=== PATIENT | female | born 1960 | race African-American/Black ===

== ENCOUNTER 2025-05-26 09:50 | Outpatient (AMB) | payer MEDICARE, SELFPAY ==
--- NOTE | 2025-05-26 09:50 | MHC.PC.OV ---
Vital Signs 05/26/25 09:52 Height 5 ft 4.75 in Weight 163 lb 4 oz BMI 27.4 BP 124/86 Blood Pressure Location Rt brachial Position Sitting Respiration 16 Pulse 96 Pulse Source Pulse Oximeter Temp 96.8 F Temp Source Temporal Artery Scan Pulse Oximetry (%) 97 Oxygen Delivery Method Room Air Intake Visit Reasons: routine Help Desk Manager Required: No Accompanied by: Self / Same As Patient Allergies pravastatin Adverse Reaction (Intermediate, Verified 05/26/25 09:54) muscle aches Tobacco use date assessed: 05/26/25 Fall risk assessment: No Falls in past year Last assessed Fall Risk: 05/26/25 Dental Screening Dental Screen Date: 05/26/25 Did you have a dental visit in the last 12 months?: Yes Did you have a dental problem in the last 6 months where you did not have access to dental care?: No Was dental information given to patient?: Patient has dentist [facility] Medical History (Updated 05/25/25 @ 23:05 by Phyllis Frod MD) Rheumatoid arthritis CKD stage 3a, GFR 45-59 ml/min History of stroke Mixed hyperlipidemia Primary hypertension Surgical History (Updated 05/25/25 @ 23:05 by Phyllis Ford MD) H/O: hysterectomy History of colonoscopy (~07/31/24) Family History (Updated 05/25/25 @ 23:04 by Phyllis Ford MD) Sister Primary hypertension Other Diabetes mellitus Heart attack Mixed hyperlipidemia Ovarian cancer Social History Housing: [employer] Patient Tobacco Use Status: Never used Tobacco e-Cigarette/Vaping Use: Never Used service: No Current occupational status: retired Questionnaire PHQ-9 Over the last 2 weeks, how often have you been bothered by any of the following problems? 1. Little interest or pleasure in doing things: not at all 2. Feeling down, depressed, or hopeless: not at all 3. Trouble falling or staying asleep, or sleeping too much: several days 4. Feeling tired or having little energy: not at all 5. Poor appetite or overeating: not at all 6. Feeling bad about yourself - or that you are a failure or have let yourself or your family down: not at all 7. Trouble concentrating on things, such as reading the newspaper or watching television: not at all 8. Moving or speaking so slowly that other people could have noticed. Or the opposite - being so fidgety or restless that you have been moving around a lot more than usual: not at all 9. Thoughts that you would be better off or of hurting yourself in some way: not at all Total score: 1 Depression Screening Interpretation: Negative Depression Screening Done: Yes [id number] - PHQ-9 Billing: Yes Source: Developed by Drs. Chris Owen, Celina Farmer, Rodrick Guido and colleagues, with an educational nel from [employer]. AUDIT C Alcohol Use Questionnaire (AUDIT-C) 1. How often do you have a drink containing alcohol?: Never 3. How often do you have six or more drinks on one occasion?: Never Total Score: 0 Physical exam (Primary Care) Vital Signs: Last Vital Signs Temp 96.8 F 05/26/25 09:52 Pulse 96 05/26/25 09:52 Resp 16 05/26/25 09:52 BP 124/86 05/26/25 09:52 Pulse Ox 97 05/26/25 09:52 Oxygen Delivery Method Room Air 05/26/25 09:52 BMI result Body Mass Index 27.4 Tobacco/Smoking Status: Tobacco use Status Tobacco use date assessed 05/26/25 05/26/25 10:02 Patient Tobacco Use Status Never used Tobacco 05/26/25 10:02 e-Cigarette/Vaping Use Never Used 05/26/25 10:02 PHQ-9: PHQ-9 Score PHQ-9: Total score 1 05/26/25 10:02 Depression Screening Interpretation: Negative Coding Additional Codes PHQ-9 - 51860 - PHQ-9 Billing: Yes ([id number])
[2025-05-26 09:52] VITALS: BP 124/86; PULSE 96; RESP 16; TEMP 36; O2SAT 97; BMI 27.4
--- NOTE | 2025-05-26 10:09 | A.OFFVIS_ITS ---
Intake Vital Signs 05/26/25 09:52 Height 5 ft 4.75 in Weight 163 lb 4 oz BMI 27.4 BP 124/86 Blood Pressure Location Rt brachial Position Sitting Respiration 16 Pulse 96 Pulse Source Pulse Oximeter Temp 96.8 F Temp Source Temporal Artery Scan Pulse Oximetry (%) 97 Oxygen Delivery Method Room Air Intake Visit Reasons: routine, medicare wellness visit, [facility] Allergies methotrexate Adverse Reaction (Intermediate, Verified 05/26/25 10:12) Nausea and Vomiting pravastatin Adverse Reaction (Intermediate, Verified 05/26/25 09:54) muscle aches Medication List - Last Reconciled 05/26/25 by Phyllis Ford MD amlodipine 5 mg PO DAILY candesartan 32 mg PO DAILY chlorthalidone 25 mg PO DAILY ezetimibe 10 mg PO DAILY fluticasone propionate 50 mcg/actuation 1 spray intranasal DAILY ibuprofen mg PO Q8H PRN metformin ER 1,000 mg PO BID omeprazole 20 mg PO BID tirzepatide (Mounjaro) mg subcut HPI HPI Comments History of Present Illness Details The patient is a 65-year-old female presenting to [facility] and for wellness visit. Health Risk Assessment completed, no opioid use. No cognitive deficits. Rheumatoid Arthritis: The patient has a history of rheumatoid arthritis and has experienced intolerance to multiple medications, including methotrexate, leflunomide, and hydroxychloroquine, which caused stomach upset, indigestion, and nausea. The patient reports current pain as very mild and states that Celebrex was effective but discontinued . An injectable medication has been approved by insurance, but the patient is hesitant to start it. The patient recently self-treated with ibuprofen 800mg, which provided relief, but was advised to discontinue it due to risks associated with diabetes and hypertension and her history of CKD. The patient reports difficulty with narcotics and/or vice detective strength, such as opening water bottles. Type 2 Diabetes Mellitus: The patient's type 2 diabetes is managed with metformin 1000 mg twice daily and Mounjaro 12.5 mg subcutaneous injections. The patient has experienced a total weight loss of 52 pounds over the past two years through diet modifications with Weight Watchers and medication. The patient reports a reduction in nocturia since losing weight. Essential Hypertension: The patient manages hypertension with amlodipine and chlorthalidone. The patient was counseled on avoiding NSAIDs like ibuprofen due to the potential for kidney damage in the context of diabetes and hypertension. Hyperlipidemia: For high cholesterol, the patient is taking ezetimibe. Health Maintenance: The patient is due for a screening mammogram, with the last one having been in March of the previous year. The status of the last bone density scan is unknown- will obtain records. The patient has received the Prevnar 20 pneumonia vaccine about a year ago and is due for an annual flu shot. Care Team [facility]- [facility] Social History: - Alcohol use: The patient denies ever d rinking alcohol. - Exercise: The patient participates in chair aerobics on Tuesdays and and also walks regularly with their . - Nutrition: The patient follows Weight Watchers, which was initiated two years ago, and practices portion control. - Functional Status: The patient is inde pendent with activities of daily living, can perform heavy physical activity, manages finances, and drives without difficulty. - Fall History: The patient denies any f alls in the past year. Diagnostic Results: - ECHO-7 score: 0, indicating no anxiety. - Cognitive screen: The patient demonstr ated some difficulty with the clock drawing test initially but completed it and successfully recalled three out of three words. - Mammogram: Last performed on March 25 of the previous year. [facility] Medical History (Updated 05/26/25 @ 17:43 by Phyllis Ford MD) Routine adult health maintenance Hypokalemia Iron deficiency anemia Murmur Diabetes mellitus type 2 in nonobese Rheumatoid arthritis CKD stage 3a, GFR 45-59 ml/min History of stroke Mixed hyperlipidemia Primary hypertension Surgical History (Updated 05/25/25 @ 23:05 by Phyllis Ford MD) H/O: hysterectomy History of colonoscopy (~07/31/24) Family History (Updated 05/25/25 @ 23:04 by Phyllis Ford MD) Sister Primary hypertension Other Diabetes mellitus Heart attack Mixed hyperlipidemia Ovarian cancer Questionnaire Medicare Wellness Checkup [age] 65-67 What gender do you identify with?: female During the past 4 weeks, how much have you been bothered by emotional problems such as feeling anxious, depressed, irritable, sad or downhearted, and blue?: not at all During the past 4 weeks, has your physical & emotional health limited your social activities with family, friends, neighbors, or groups?: not at all During the past 4 weeks, how much bodily pain have you generally had?: very mild pain During the past 4 weeks, was someone available to help you if you needed & wanted help?: yes, as much as I wanted During the past 4 weeks, what was the hardest physical activity you could do for at least 2 minutes?: heavy Can you get to places out of walking distance without help? (For eg., can you travel alone on buses, taxis or drive your car?): Yes Can you go shopping for groceries or clothes without someone's help?: Yes Can you prepare your own meals?: Yes Can you do your housework without help?: Yes Because of any health problems, do you need the help of another person with your personal care needs such as eating, bathing, dressing or getting around the house?: No Can you handle your own money without help?: Yes During the past 4 weeks, how would you rate your health in general?: excellent During the past 4 weeks how have things been going for you?: very well; could hardly better Are you having difficulties driving your car?: no Do you always fasten your seat belt when you are in a car?: yes, usually During past 4 weeks, have you been bothered by the following: never: Falling or dizzy when standing up, Sexual problems?, Trouble eating well?, Teeth or denture problems?, Problems using the telephone? and Tiredness or fatigue? Have you fallen 2 or more times in the past year?: No Are you afraid of falling?: No Are you a smoker?: no During the past 4 weeks, how many drinks of wine, beer, or other alcoholic beverages did you have?: no alcohol at all Do you exercise for about 20 minutes 3 or more times a week?: yes, most of the time Have you been given information to help with the following?: no: Hazards in your house that might hurt you? and no: Keeping track of your medications? How often do you have trouble taking medicines the way you have been told to take them?: I always take medicine as prescribed How confident are you that you can control & manage most of your health problems?: very confident What is your race?: Black or Thrive Questionnaire Date Thrive assessed: 05/26/25 I am a: Patient What is your living situation today?: I have a steady place to live Within the past 12 months, did the food you bought not last and you didn't have the money to get more?: Never true Within the past 12 months, did you worry whether your food would run out before you got money to buy more?: Never true Do you have trouble paying for medicines?: No Do you have trouble getting transportation to medical appointments?: No Do you have trouble paying your heating and electricity bill?: No Do you have trouble taking care of your child, family member or friend?: No Do you have trouble with day-to-day activities such as bathing, preparing meals, shopping, managing finances, etc.?: No Are you currently unemployed and looking for a job?: No Are you interested in more education?: No Please select the resources that you would like help with: None THRIVE Score: 0 ECHO-7 AMB Questionnaire ECHO-7 Date ECHO - 7 assessed: 05/26/25 Feeling nervous, anxious, or on edge: 0 = Not at all Not being able to stop or control worryin = Not at all Worrying too much about different things: 0 = Not at all Trouble relaxin = Not at all Being so restless that it is hard to sit still: 0 = Not at all Becoming easily annoyed or irritable: 0 = Not at all Feeling afraid as if something awful might happen: 0 = Not at all Total ECHO-7 score (0-4 normal; 5-9 mild; 10-14 moderate; 15-21 severe): 0 Source: Developed by Drs. Chris Owen, Celina Farmer, Rodrick Guido and colleagues, with an educational nel from [employer] AUDIT C Alcohol Use Questionnaire (AUDIT-C) 3. How often do you have six or more drinks on one occasion?: Never Total Score: 0 Review of Systems Narrative Review of Systems - Constitutional: Denies feeling tired. - Gastrointestinal: Denies problems eating. - Psychiatric: Denies anxiety or depression. - Neurological: Denies dizziness. - Musculoskeletal: Reports very mild, non-intense pain from rheumatoid arthritis. Physical Exam Exam Exam: Physical Exam - General: NAD - Vital Signs: Weight 163 lbs. - HEENT: Oropharynx is clear, without redness. Bilateral ears are clear. - Cardiovascular: Regular rhythm. Grade III/ murmur at base with some radiation to carotids. - Pulmonary: Lungs are clear to auscultation bilaterally. - Abdomen: Soft, non-distended, and non-tender with normal bowel sounds. - Extremities: No edema in bilateral lower extremities. - Neurological/Psychiatric: Performed clock drawing test. Successfully recalled 3/3 words. Vital Signs: Last Vital Signs Temp 96.8 F 05/26/25 09:52 Pulse 96 05/26/25 09:52 Resp 16 05/26/25 09:52 BP 124/86 05/26/25 09:52 Pulse Ox 97 05/26/25 09:52 Oxygen Delivery Method Room Air 05/26/25 09:52 BMI result Body Mass Index 27.4 Assessment & Plan Assessment & Plan (1) Routine adult health maintenance: Code(s): Z00.00 - Encounter for general adult medical examination without abnormal findings (2) Primary hypertension: Code(s): I10 - Essential (primary) hypertension (3) Mixed hyperlipidemia: Code(s): E78.2 - Mixed hyperlipidemia (4) Rheumatoid arthritis: Code(s): M06.9 - Rheumatoid arthritis, unspecified Qualifiers: Rheumatoid arthritis location: unspecified site Rheumatoid factor presence: with rheumatoid factor Qualified Code(s): M05.9 - Rheumatoid arthritis with rheumatoid factor, unspecified (5) Diabetes mellitus type 2 in nonobese: Code(s): E11.9 - Type 2 diabetes mellitus without complications Plan Assessment and Plan 1. Rheumatoid Arthritis - The patient's RA is currently causing mild pain. - Due to intolerance to oral DMARDs and the risks of NSAIDs given comorbidities, the patient is encouraged to try the prescribed biologic - For symptomatic relief, the patient is advised to discontinue ibuprofen and use Tylenol Arthritis instead. - Records will be requested from the [facility] to review management and prior test results, including any bone density scans. 2. Type 2 Diabetes Mellitus & Overweight - The patient is doing well with significant weight loss on Mounjaro and metformin. - Labs, including an A1c, will be checked today to assess glycemic control, with the possibility of tapering metformin if results are favorable. - Refills for Mounjaro 12.5 mg and metformin 1000 mg BID will be sent. 3. Essential Hypertension - Condition is managed with amlodipine, candesartan and chlorthalidone. - The importance of avoiding NSAIDs was reinforced. 4. Hyperlipidemia - Managed with ezetimibe. 5. Heart Murmur - A grade III/ murmur was noted on exam with some radiation to carotids, r/o aortic stenosis. - will obtain echocardiogram - The patient was counseled on symptoms that would warrant urgent notification, such as chest pain, shortness of breath, or leg swelling. 6. Health Maintenance - The patient was advised to schedule a mammogram - The patient will also receive an annual flu shot - Follow up in 3-4 months Plan - Labs to be drawn today include CBC, CMP, urinalysis, and A1c. - Place referral for echocardiogram to evaluate heart murmur. - Request medical records from the [facility]. - Advise patient to discontinue ibuprofen use. - Recommend Tylenol Arthritis (two tablets with breakfast and two with dinner) for joint pain management. Discussion Notes We reviewed the management of rheumatoid arthritis, noting the patient's intolerance to several oral medications and hesitancy to start the prescribed injectable. I strongly advised against the use of ibuprofen and other NSAIDs due to the patient's comorbidities of diabetes and hypertension, explaining the risk to kidney function, and recommended Tylenol Arthritis as a safer alternative for pain. We discussed the impressive 52-pound weight loss and the success with Mounjaro and metformin for diabetes management. I explained that we would check an A1c to see if the metformin dose could be reduced in the future. Patient Instructions - Stop taking ibuprofen. - For joint pain, you may take two Tylenol Arthritis tablets with breakfast and two with dinner. - Schedule an appointment for a mammogram. - Get your annual flu shot at the pharmacy. - You will receive a call from the cardiology department to schedule an ultrasound of your heart (echocardiogram). - Continue your current medications as prescribed - Please call the office if you experience any new or worsening shortness of breath, chest pain, or swelling in your legs. - Follow up in the office in 4 months. Orders: Orders Comprehensive Met. Panel Today E11.9 - Type 2 diabetes mellitus without complications, E78.2 - Mixed hyperlipidemia, I10 - Essential (primary) hypertension, M06.9 - Rheumatoid arthritis, unspecified, N18.31 - Chronic kidney disease, stage 3a Lipid Panel Today E11.9 - Type 2 diabetes mellitus without complications, E78.2 - Mixed hyperlipidemia, I10 - Essential (primary) hypertension, M06.9 - Rheumatoid arthritis, unspecified, N18.31 - Chronic kidney disease, stage 3a TSH reflex Free T4 Today E11.9 - Type 2 diabetes mellitus without complications, E78.2 - Mixed hyperlipidemia, I10 - Essential (primary) hypertension, M06.9 - Rheumatoid arthritis, unspecified, N18.31 - Chronic kidney disease, stage 3a Microalbumin, Random (w Creat) Today E11.9 - Type 2 diabetes mellitus without complications, E78.2 - Mixed hyperlipidemia, I10 - Essential (primary) hyper tension, M06.9 - Rheumatoid arthritis, unspecified, N18.31 - Chronic kidney disease, stage 3a CA echo transthoracic complete Today I10 - Essential (primary) hypertension, R0 1.1 - Cardiac murmur, unspecified Complete Blood Count Auto Diff Today E11.9 - Type 2 diabetes mellitus without complications, E78.2 - Mixed hyperlipidemia, I10 - Essential (primary) hypertension, M06.9 - Rheumatoid arthritis, unspecified, N18.31 - Chronic kidney disease, stage 3a Hemoglobin A1c Today E11.9 - Type 2 diabetes mellitus without complications, E78.2 - Mixed hyperlipidemia, I10 - Essential (primary) hypertension, M06.9 - Rheumatoid arthritis, unspecified, N18.31 - Chronic kidney disease, stage 3a Medications: New amlodipine 5 mg PO DAILY 90 tabs 3RF candesartan 32 mg PO DAILY 90 tabs 3RF blood pressure chlorthalidone 25 mg PO DAILY 90 tabs 3RF ezetimibe 10 mg PO DAILY 90 tabs 3RF cholesterol metformin ER 1,000 mg (2 x 500 mg) PO BID 180 tabs 3RF omeprazole 20 mg PO BID 180 caps 3RF tirzepatide (Mounjaro) 12.5 mg (0.5 mL) subcut QWEEK 2 mL 5RF Patient Instructions: GET FASTING LABS TODAY. SCHEDULE YOUR MAMMOGRAM AND GYNECOLOGY APPOINTMENTS. FIND OUT IF YOU HAD A BONE DENSITY SCAN DONE AT THE [facility] Coding Level of Care Code Medicare Subsequent (G0439) Diagnoses Routine adult health maintenance Z00.00 Primary hypertension I10 Mixed hyperlipidemia E78.2 Rheumatoid arthritis with positive rheumatoid factor, involving unspecified site M05.9 Rheumatoid arthritis location: unspecified site Rheumatoid factor presence: with rheumatoid factor Diabetes mellitus type 2 in nonobese E11.9 Comment add G2211 code
--- OUTSIDE RECORDS SUMMARY | 2025-05-26 10:59 | XMS_ITS | Clinical Summary ---
Author Organization [facility] Address [address] [place] [address] Phone Care Team Providers Care Highway Patrol Officer Name Role Phone Marcia Jackman MD Primary Care Provider [phone] Allergies Active Allergy Reactions Criticality Noted Date Comments Pravastatin Muscular Issues Medium 07/31/2024 Medications omeprazole OTC (PriLOSEC OTC) 20 mg EC tablet Take 1 tablet (20 mg total) by mouth 2 (two) times a day. Do not crush, chew, or split. Active metFORMIN 625 mg tablet Take 1,000 mg by mouth. 02/28/20 24 Active candesartan (ATACAND) 32 mg tablet 02/28/20 24 Active chlorthalidone (HYGROTON) 25 mg tablet See Instructions, TAKE 1 TABLET DAILY (DISCONTINUE HYDROCHLOROTHIA ZIDE), # 90 tablet, Refills 3, Tot. Refills 3, Maintenance, 02/28/24 2:36:00 PM EDT, Instructions Replace Required Details, Route to Pharmacy Electronically[facility] put on file, 161, cm, 02/28/24 13:52:00 EDT, Height, 82, kg, 02/28/24 13:52:00 EDT, Dry Weight 02/28/20 24 Active glipiZIDE (GLUCOTROL XL) 5 mg 24 hr tablet Active omeprazole (PriLOSEC) [address] capsuleIndicat ions:Gastroeso phageal reflux disease without esophagitis TAKE ONE CAPSULE BY MOUTH TWICE A DAY (DO NOT CRUSH, CHEW OR SPLIT) 180 capsule 3 05/22/20 25 Active omeprazole OTC (PriLOSEC OTC) 20 mg EC tabletIndicati ons:Gastroesop hageal reflux disease without esophagitis Take 1 tablet (20 mg total) by mouth 2 (two) times a day. Do not crush, chew, or split. 180 tablet 3 05/05/20 24 025 Discontinued Medical History Medical History Date Comments Hypertension Hyperlipidemia Diabetes mellitus ([facility] V24, [facility] V28) Social History Tobacco Use Types Packs/Day Years Used Date Smoking Tobacco: Never Assessed Comments No Sex and Gender Information Value Date Recorded Sex Assigned at Female 07/31/2024 7:26 AM EST Legal Sex Female 7:10 PM EST Gender Identity Female 07/31/2024 7:26 AM EST Sexual Orientation Straight 07/31/2024 7: 26 AM EST Obstetrics History Last Filed Vital Signs Vital Sign Reading Time Taken Comments Blood Pressure 116/80 07/31/2024 8:47 AM EST Pulse 98 07/31/2024 8:47 AM EST Temperature 36.7 C (98 F) 07/31/2024 8:27 AM EST Respiratory Rate 20 07/31/2024 8:47 AM EST Oxygen Saturation 97% 07/31/2024 8:47 AM EST Inhaled Oxygen Concentration - - Weight 83 kg (183 lb) 07/31/2024 8:01 AM EST Height 162.6 cm (5' 4 ) 07/31/2024 8:01 AM EST Body Mass Index 31.41 07/31/2024 8:01 AM EST Plan of Treatment Health Maintenance Due Date Last Done Comments Diabetes: Annual GFR (Glomerular Filtration Rate) 1958 Diabetes: Annual Foot Exam 1968 Diabetes: Annual Retina Eye Exam 1968 Cholesterol Screening (Lipid Panel) 05/26/2022 Hepatitis C Screening 05/26/2022 Medicare Annual Wellness Visit 05/26/2022 Osteoporosis Screening (Bone Density Screening) 05/26/2022 Social Influencers of Health Screening 05/26/2022 Depression Screening 06/24/2024 Diabetes: Annual Urine Albumin-Creatinine Ratio (uACR) 07/31/2024 Diabetes: Blood Sugar Control Test (HGBA1C) 07/31/2024 Hypertension/CHF/CAD Annual BMP Blood Test 07/31/2024 COVID-19 Vaccine ( season) 2025 06/02/2023, 04/10/2022, 05/03/2021, Additional history exists Influenza Vaccine (#1) 2025 , 04/21/2023, 04/04/2022, Additional history exists Falls Risk Assessment 07/31/2025 07/31/2024 Breast Cancer Screening 04/03/2026 04/03/20 24, 03/29/2023, 03/26/2022, Additional history exists DTaP,Tdap,and Td Vaccines (2 - Td or Tdap) 06/13/2027 06/13/2017 Colorectal Cancer Screening: Colonoscopy 07/31/2034 07/31/2024 Zoster Vaccines Completed 06/05/2021, 01/31/2021 RSV Immunization Adult Patients Completed 05/05/2023 Pneumococcal Vaccine: 50+ Years Completed 06/27/2023, 01/24/2022 HIB Vaccines Aged Out No longer eligi ble based on patient's age to complete this topic HPV Vaccines Aged Out No longer eligi ble based on patient's age to complete this topic Hepatitis A Vaccines Aged Out No long er eligible based on patient's age to complete this topic Hepatitis B Vaccines Aged Out No long er eligible based on patient's age to complete this topic IPV Vaccines Aged Out No longer eligi ble based on patient's age to complete this topic MMR Vaccines Aged Out No longer eligi ble based on patient's age to complete this topic Meningococcal ACWY Vaccine Aged Out N o longer eligible based on patient's age to complete this topic Meningococcal B Vaccine Aged Out No l onger eligible based on patient's age to complete this topic RSV Immunization Patients Under 20 months Aged Out No longer eligible based on patient's age to complete this topic Varicella Vaccines Aged Out No longer eligible based on patient's age to complete this topic Procedures Procedure Name Priority Date/Time Associated Diagnosis Comments COLONOSCOPY Routine 07/31/2024 8:26 AM EST Colon cancer screening KIMMY SCREENING DIGITAL Routine 04/03/2024 11:20 AM EDT Encounter for screening mammogram for malignant neoplasm of breast from Last 3 Months or Most Recently Relevant to Health Maintenance Results * COLONOSCOPY Anesthesia - MAC; [facility] ENDOSCOPY (07/31/2024 8:26 AM EST) Anatomical Region Laterality Modality Endoscopy 07/31/2024 8:02 AM EST Impressions 07/31/2024 8:28 AM EST - Diverticulosis in the sigmoid colon and in the ascending colon. - Non-bleeding internal hemorrhoids. - The examination was otherwise normal on direct and retroflexion views. - No specimens collected. Recommendation: - Discharge patient to home. - High fiber diet. - Continue present medications. - Repeat colonoscopy in 5 years for surveillance. - Return to GI office PRN. Narrative 07/31/2024 8:[address] [facility] Patient Name: Josué Grimes Procedure Date: 07/31/2024 8:02 AM Date of : 1960 Age: 64 Room: ROOM 15 Gender: Female Note Status: Finalized Attending MD: Girish Manuel MD, Procedure Date No Time: 07/31/2024 Procedure: Colonoscopy Indications: Colon cancer screening in patient at increased risk: Family history of 1st-degree relative with colon polyps Providers: Girish Manuel MD Referring MD: Girish Manuel MD Medicines: Monitored Anesthesia Care Complications: No immediate complications. Estimated Blood Loss: Estimated blood loss: none. Procedure: Pre-Anesthesia Assessment: - ASA Grade Assessment: II - A patient with mild systemic disease. - After reviewing the risks and benefits, the patient was deemed in satisfactory condition to undergo the procedure. After I obtained informed consent, the scope was passed under direct vision. Throughout the procedure, the patient's blood pressure, pulse, and oxygen saturations were monitored continuously.The Colonoscope was introduced through the anus and advanced to the cecum, identified by appendiceal orifice and ileocecal valve. The colonoscopy was performed without difficulty. The patient tolerated the procedure well. The quality of the bowel preparation was good. Findings: Scattered small and large-mouthed diverticula were found in the sigmoid colon and ascending colon. Non-bleeding internal hemorrhoids were found during retroflexion. The hemorrhoids were small. The exam was otherwise without abnormality on direct and retroflexion views. Procedure Code(s): --- Professional --- G0105, Colorectal cancer screening; colonoscopy on individual at high risk Diagnosis Code(s): --- Professional --- Z83.71, Family history of colonic polyps CPT copyright 2020 [employer]. All rights reserved. The codes documented in this report are preliminary and upon renewable energy consultant review may be revised to meet current compliance requirements. Girish Manuel MD 07/31/2024 8:28:16 AM This report has been signed electronically.Girish Manuel MD Number of Addenda: 0 Note Initiated On: 07/31/2024 8:02 AM Scope In: Scope Out: Endoscopy Department at [facility] - [address] [place] [id number] Procedure Note Girish Manuel MD - 07/31/2024 [facility] Patient Name: Josué Grimes Procedure Date: 07/31/2024 8:02 AM Date of : 1960 Age: 64 Room: ROOM 15 Gender: Female Note Status: Finalized Attending MD: Girish Manuel MD, Procedure Date No Time: 07/31/2024 Procedure: Colonoscopy Indications: Colon cancer screening in patient at increasedrisk: Family history of 1st-degree relative with colonpolyps Providers: Girish Manuel MD Referring MD: Girish Manuel MD Medicines: Monitored Anesthesia Care Complications: No immediate complications. Estimated Blood Loss: Estimated blood loss: none. Procedure: Pre-Anesthesia Assessment: - ASA Grade Assessment: II - A patient with mild systemic disease. - After reviewing the risks and benefits, thepatient was deemed in satisfactory condition to undergo the procedure. After I obtained informed consent, the scope was passed under direct vision. Throughout theprocedure, the patient's blood pressure, pulse, and oxygen saturations were monitored continuously.The Colonoscope was introduced through the anus and advanced to the cecum, identified by appendiceal orifice and ileocecal valve. The colonoscopy was performed without difficulty. The patient tolerated the procedure well. The quality of the bowel preparation was good. Findings: Scattered small and large-mouthed diverticula were found in the sigmoid colon and ascending colon. Non-bleeding internal hemorrhoids were found during retroflexion. The hemorrhoids were small. The exam was otherwise without abnormality ondirect and retroflexion views. Procedure Code(s): --- Professional --- G0105, Colorectal cancer screening; colonoscopy on individual at high risk Diagnosis Code(s): --- Professional --- Z83.71, Family history of colonic polyps CPT copyright 2020 [employer]. All rights reserved. The codes documented in this report are preliminary and upon renewable energy consultant reviewmay be revised to meet current compliance requirements. Girish Manuel MD 07/31/2024 8:28:16 AM This report has been signed electronically.Girish Manuel MD Number of Addenda: 0 Note Initiated On: 07/31/2024 8:02 AM Scope In: Scope Out: Endoscopy Department at [facility] - [address] [place] [phone] IMPRESSION: - Diverticulosis in the sigmoid colon and in the ascending colon. - Non-bleeding internal hemorrhoids. - The examination was otherwise normal on directand retroflexion views. - No specimens collected. Recommendation: - Discharge patient to home. - High fiber diet. - Continue present medications. - Repeat colonoscopy in 5 years for surveillance. - Return to GI office PRN. us Girish Manuel MD GI~PROCEDURE ORDERABLES Final Result * KIMMY SCREENING DIGITAL (04/03/2024 11:20 AM EDT) Anatomical Region Laterality Modality Mammography 04/03/2024 10:3 2 AM EDT Narrative 04/03/2024 11:20 AM EDT [facility] Diagnostic Imaging Department [address] [place] [address] [id number] Patient: JOSUÉ GRIMES /Age/Sex: 1960 - 63 - F Unit#: [id number] Location/Status: SPDIMAM/REG CLI Mnemonic/Ordering [facility] Ordering Physician: MARCIA JACKMAN MD Kimmy Screening Digital - 04/03/24 - 1111 Report Status:Signed HISTORY: The patient is a 63-year-old female presenting for routine screening mammography. The patient underwent right breast biopsy in 2013, pathology benign. FINDINGS: Full-field digital mammography of the breasts bilaterally consisting of tomosynthesis in MLO and CC projection is performed in the [employer] 2000-D unit. Computer aided detection utilizing the iCAD system was utilized. The breasts are again seen to be composed of a combination of fatty and fibroglandular elements (scattered areas of fibroglandular density, category B density as calculated with [employer]idge Volpara software), without significant change as compared to prior studies most recently 03/29/2023 most remotely 08/20/2016. A tissue marker is again seen anteriorly in the right breast. Benign punctate and vascular calcifications are again seen. There is no suspicious cluster of microcalcifications, mass, or area of architectural distortion. There is no skin thickening or nipple retraction. IMPRESSION: No mammographic evidence of malignancy. A negative mammogram in the presence of a clinically suspicious palpable abnormality does not preclude the possibility of malignancy or alter the indications for biopsy. BIRADS Code Class 2: Benign Finding PQRI CPT II 3342F Code 38921, 81551 PQRI 225 CPT II 7025F Dictating Physician: YUNG AVENDANO MD Electronically Signed by: YUNG AVENDANO MD Dic Date/Time: 04/03/24 1115 Sign date/Time: 04/03/24 1120 Procedure Note Yung Avendano MD - 04/21/2024 [facility] Diagnostic Imaging Department [address] [place] [id number] Patient: JOSUÉ GRIMES aPras Vaughn/Age/Sex: 1960 - 63 - F Unit#: [id number] Location/Status: [facility] CLI Mnemonic/Ordering Site: [facility] Ordering Physician: MARCIA JACKMAN MD Kimmy Screening Digital - 04/03/24 - 1111 Report Status:Signed HISTORY: The patient is a 63-year-old female presenting for routinescreening mammography. The patient underwent right breast biopsy in 2013,pathology benign. FINDINGS: Full-field digital mammography of the breasts bilaterallyconsisting of tomosynthesis in MLO and CC projection is performed in the [employer] 2000-D unit. Computer aided detection utilizing the iCAD system wasutilized. The breasts are again seen to be composed of a combination of fatty and fibroglandular elements (scattered areas of fibroglandular density,category B density as calculated with [employer] Volpara software), without significantchange as compared to prior studies most recently 03/29/2023 most remotely08/20/2016. A tissue marker is again seen anteriorly in the right breast. Benignpunctate and vascular calcifications are again seen. There is no suspicious clusterof microcalcifications, mass, or area of architectural distortion. There isno skin thickening or nipple retraction. IMPRESSION: No mammographic evidence of malignancy. A negative mammogram in the presence of a clinically suspicious palpable abnormality does not preclude the possibility of malignancy or alter the indications for biopsy. BIRADS Code Class 2: Benign Finding PQRI CPT II 3342F Code 80562, 00484 PQRI 225 CPT II 7025F Dictating Physician: YUNG AVENDANO MD Electronically Signed by: YUNG AVENDANO MD Dic Date/Time: 04/03/24 1115 Sign date/Time: 04/03/24 1120 Marcia Jackman MD IMG BI PROCEDURES Final Re sult from Last 3 Months or Most Recently Relevant to Health Maintenance Insurance [employer] [id number] [employer] [place] [place] Care Teams Highway Patrol Officer Relationship Specialty Start Date End Date Marcia Jackman MD [address] [place] [id number] PCP - General Internal Medicine 07/31/24
--- OUTSIDE RECORDS SUMMARY | 2025-05-26 10:59 | XMS_ITS | Data Portability ---
Author Organization [place] [facility] Address [address] [place] [address] Care Team Providers Care Latin Professor Name Role Phone GASPER MARCIA Primary Care Provider [phone] [facility] CARE MANAGEMENT OTHER Assessment Encounter Date Assessment Date Assessment LastModified by Organization Details LastModified Time 04/27/2021 04/27/2021 Time On Scene with Patient: 00:31:42 DDX: septic joint, ligament sprain, ligament tear. osteoarthritis , fracture. Pt is not having pain expected for acute fracture. ALso pain has improved with time and rest. Today is the best day for her. THis makes fx unlikely with this improvement. No clinical findings to suggest septic joint or local infection. There is some swelling medially when compared to left knee. At this time, with pain improvement, offered patient SHANNON wrap for comfort which was accepted. Further patient was given RX for meloxicam should pain recur. Pt understands that this takes longer to work then ibuprofen. Further understands that ibuprofen will not be used if she is taking meloxicam. Pt has FU with [facility] for further evaluation - will call and see if she can be seen earlier than first week in May. [email or web address] Not available 04/27/2021 16:22:22 Plan of Treatment Reminders Order Date Submit Date Provider Last Modified By Organization Details Last Modified Time Details Appointments None recorded. Lab None recorded. Referral None recorded. Procedures None recorded. Surgeries None recorded. Imaging None recorded. Medication Orders meloxicam 7.5 mg tablet 2020 021 [id number], [address] [facility], [place], [address], 16:14:09 Patient TargetsNo targets recorded. Patient Instructions Encounter Date Encounter Id Patient Instructions Last Modified By Organization Details Last Modified Time 04/27/2021 [id number] Fam[facility] came to your home for evaluation of right knee pain. You have had injections to the knee before and pain there. You irritated it with all the activity over the past weekend. The pain improved today but was painful last night. You have plans to see David MASON at [facility] on May 26. Please keep this appointment. We wrapped your right knee with an shannon wrap. We also sent a prescription for meloxicam for pain to the pharmacy. The SHANNON wrap is only for comfort. It you find it is not helping, please do not continue to wear it. Please take it off at night. You have been taking ibuprofen for discomfort. You can take this with tylenol for pain. Please do not take the ibuprofen if you take the meloxicam. If you have any redness, fevers, worsening pain, inability to ambulate or swelling, please get re-evaluated. Thank you for your visit with [facility] today. We cannot always find the exact cause of your symptoms during your initial visit. Please follow up with your primary care provider or specialist to be rechecked or seek medical attention if your symptoms do not go away or get worse. If you develop any new or worsening symptoms and need after hours care, please go to nearest ER and/or call 911. If you have additional concerns or develop a change in your condition between 8am-10pm, please call [facility] at [phone] to help navigate your care. [email or web address] Not available 04/27/2021 14:49:34 Reason for Referral None Reported. Procedures Surgical History Date Name Laterality Status Provider Name and Address Organization Details Recorded Time Total Hysterectomy completed CARLOS MANUEL BONDS NP [address] [place], [address], [place] [facility] 04/27/2021 14:34:11 Imaging Results None recorded. Procedure Notes None recorded. Medical Equipment None Reported. Allergies No known drug allergies Medications Name Sig Start Date Stop Date Status Note LastModified by Organization Details LastModified Time fluconazole 150 mg tablet 04/27 completed Not Available Not Available Not Available FreeStyle Lancets 28 gauge active Not Available Not Available Not Available glipizide ER 5 mg tablet, extended release 24 hr active Not Available Not Availabl e Not Available meloxicam 7.5 mg tablet Take 1 tablet every day by oral route for 14 days. active Not Available Not Available No t Available candesartan 32 mg tablet active Not Available Not Available Not Available hydrochloroth iazide 25 mg tablet active Not Available Not Available Not Available lisinopril 40 mg tablet active Not Available Not Available No t Available metformin ER 500 mg tablet,extend ed release 24 hr active Not Available Not Available Not Available amoxicillin 875 mg-potassium clavulanate 125 mg tablet 04/27 completed Not Available Not Available Not Available Alcohol Prep Pads active Not Available Not Available Not Available FreeStyle Lite Strips active Not Available Not Available Not Available Vitals Date Recorded Body temperature Heart rate Oxygen saturation Respiratory rate Systolic And Diastolic Provider Name and Address Organization Details Last Updated DateTime 97.2 [degF] 122 /min 96 % 16 /min 122/84 mm[Hg] Not Available [facility] 14:32:19 Social History None recorded. Functional Status None recorded. Mental Status None recorded. Family History Nothing Reported. Medical History Condition Response Diabetes Y Coronary Artery Disease N CHF N Parkinson's Disease N Cancer N Stroke N Dementia N Asthma N Hypothyroidism N Depression N COPD N High Cholesterol N Rheumatoid Arthritis N Pulmonary Embolism N Hypertension Y A-fib N Osteoporosis Y Kidney Disease N Gynecological HistoryNo gynecological history recorded. Obstetrics History GPAL:G 0 P 0 0 0 0 Past Encounters Encounter ID Performer Location Encounter Start Date Encounter Closed Date Diagnosis/Indication Diagnosis SNOMED-CT Code Diagnosis ICD10 Code Diagnosis IMO Codes Diagnosis Note [id number] CARLOS MANUEL BONDS NP [facility] [employer] [address] [place] [address] 04/27/2021 14:24:32 05/02/2021 13:22:46 Pain of right knee joint [id number] 39681 M25.561 Health Concerns Section Related Observation LastModified by Organization Detai ls LastModified Time None Recorded Concern Status LastModified by Organization Details LastModified Time None Recorded Advance Directives Directive None Recorded Payers Insurance Date Sequence Insurance Name Policy Number Policy Villagomez Covered Member ID Villagomez Member ID Guarantor Name 04/27/2021 1 *SELF PAY* Cherie Grimes [id number] Cherie Grimes 05/02/2021 1 [facility] [employer] [facility] [place] [id number] Cherie Grimes [id number] Cherie Grimes 05/02/2021 1 [facility] - MEDICARE PREFERRED (MEDICARE REPLACEMENT HMO) [id number] Cherie Grimes [id number] Cherie Grimes Notes Date Note Type Note Provider Name and Address Organization Details Recorded Time 04/27/2021 text/html General HPI Template - DHReported by Patient 60 year-old female with history of arthritis, HTN, DM, who calls to home for evaluation of right knee pain. Pt has history of right knee pain secondary to arthritis - She has had injections to the knee, her last treatment was over 1 year ago with [facility]. She reports that she had a busy weekend and was very active. She noticed Saturday that she had pain to her right knee, worse with weight bearing. She felt the pain was more noticeable to the outside of the knee. She did not notice any swelling, redness to the area. She has been taking ibuprofen twice a day. She had increased pain last night where it woke her up. Today the pain seems to be improving. She has not had any trauma or falls. She denies any fevers, chills or malaise. CARLOS MANUEL BONDS, UMESH [address], [place], [address], [place] [facility] 04/27/2021 16:22:34 OBGyn Episode No OBEpisode recorded.
== END 2025-05-26 10:51 | disposition home or self-care (01) ==
LOC: HO.HMCHD 09:50
PROVIDERS: PCP Internal Medicine; Visit Provider Internal Medicine
DX: Z00.00 Encounter for general adult medical examination without abnormal findings (principal); I10 Essential (primary) hypertension; E78.2 Mixed hyperlipidemia; M05.9 Rheumatoid arthritis with rheumatoid factor, unspecified; E11.9 Type 2 diabetes mellitus without complications

== ENCOUNTER 2025-05-26 10:58 | Outpatient (REF) | payer MEDICARE, SELFPAY ==
[2025-05-26 13:34] LABS: MANUAL DIFF FLAG NO
[2025-05-26 13:42] LABS: Hematocrit 36.8 % (37.0-47.0); Hemoglobin 11.8 g/dl (12.0-16.0); Imm Gran Abs Auto 0.01 X10*3/uL (0.00-0.03); Imm Gran Pct Auto 0.2 % (0.0-0.4); Lymphocytes Absolute Auto 1.4 X10*3/uL (1.2-4.9); Mean Corpuscular HGB Conc 32.1 g/dl (31.0-35.0); Mean Corpuscular Hemoglobin 26.9 pg (27.0-33.0); Mean Corpuscular Volume 84.0 fL (80.0-98.0); NRBC Abs Auto 0.000 X10*3/uL (0.0-0.012); NRBC Pct Auto 0.0 /100WBC (0.0-0.2); Platelet Count 395 X10*3/uL (160-400); Red Blood Count 4.38 X10*6/uL (4.20-5.50); White Blood Count 4.9 X10*3/uL (4.8-10.8)
[2025-05-26 14:59] LABS: Alanine Aminotransferase 9 U/L (0-31); Albumin Level 4.4 g/dL (3.5-5.0); Alkaline Phosphatase 61 U/L (39-117); Anion Gap 15 (12-20); Aspartate Amino Transferase 21 U/L (5-31); Blood Urea Nitrogen 19 mg/dL (9-16); Calcium 9.7 mg/dL (8.4-10.2); Carbon Dioxide 27 mmol/L (22-29); Chloride 101 mmol/L (96-108); Cholesterol 214 mg/dL (<200); Estimated Glomerular Filt Rate 50; HDL Cholesterol 48 mg/dL (>40); Potassium 3.1 mmol/L (3.3-5.1); Sodium 140 mmol/L (135-145); Total Protein 8.0 g/dL (6.5-8.0); Triglycerides 138 mg/dL (<150)
[2025-05-26 15:19] LABS: Microalbum/Creatinine Ratio Ur 8.9 ug/mg cr (<30)
[2025-05-26 16:08] LABS: Iron 90 mcg/dL (30-160); Percent Iron Saturation 33 % (15-50); Total Iron Binding Capacity 271 mcg/dL (228-428); Unsaturated Iron Binding 181 ug/dL
[2025-05-26 16:21] LABS: Ferritin 144 ng/mL (10-250)
== END 2025-05-26 10:59 | disposition home or self-care (01) ==
LOC: HO.10HDL 10:58
PROVIDERS: Visit Provider Internal Medicine
DX: I12.9 Hypertensive chronic kidney disease with stage 1 through stage 4 chronic kidney disease, or unspecified chronic kidney disease (principal); E11.22 Type 2 diabetes mellitus with diabetic chronic kidney disease; N18.31 Chronic kidney disease, stage 3a; E78.2 Mixed hyperlipidemia; M06.9 Rheumatoid arthritis, unspecified
CPT/HCPCS: 36415; 80053; 80061; 82043; 82570; 82728; 83036; 83540; 84443; 85025

== ENCOUNTER 2025-05-28 10:39 | Outpatient (REF) | payer MEDICARE, SELFPAY ==
--- OUTSIDE RECORDS SUMMARY | 2025-05-28 12:47 | XMS_ITS | Clinical Summary ---
Author Organization [facility] Address [address] [place] [address] Phone Care Team Providers Care Liquid Sugar Melter Name Role Phone Marcia Jackman MD Primary Care Provider [phone]- [phone] Allergies Active Allergy Reactions Criticality Noted Date [...] Replace Required Details, Route to Pharmacy Electronically, [facility] Pharmacy, put on file, 161, cm, 02/28/24 [...] History Date Comments Hypertension Hyperlipidemia Diabetes mellitus ([facility] V24, [facility] V28) Social History Tobacco Use Types Packs/Day [...] 07/31/2024 8:01 AM EST Plan of Treatment Upcoming Encounters Date Type Department Care Team (Late st Contact Info) Description 06/04/2025 2:15 PM EST Appointment [facility] [address] [address] Health Maintenance Due Date Last Done Comments [...] Maintenance Results * COLONOSCOPY Anesthesia - MAC; [facility] ENDOSCOPY (07/31/2024 8:26 AM EST) [...] office PRN. Narrative 07/31/2024 8:28 AM EST [facility] GI Patient Name: Josué Grimes Procedure Date: [...] history of colonic polyps CPT copyright 2020 [employer]. All rights reserved. The codes documented in this report are preliminary and upon mine geologist review may be revised to meet current compliance requirements. Girish Manuel MD 07/31/2024 8:28:16 AM This report has been signed electronically.Girish Manuel MD Number of Addenda: 0 Note Initiated On: 07/31/2024 8:02 AM Scope In: Scope Out: Endoscopy Department at [facility] - [address] [place] [id number] Procedure Note Girish Manuel MD - 07/31/2024 [facility] GI Patient Name: Josué Grimes Procedure Date: [...] history of colonic polyps CPT copyright 2020 [employer]. All rights reserved. The codes documented in this report are preliminary and upon mine geologist reviewmay be revised to meet current compliance requirements. Girish Manuel MD 07/31/2024 8:28:16 AM This report has been signed electronically.Girish Manuel MD Number of Addenda: 0 Note Initiated On: 07/31/2024 8:02 AM Scope In: Scope Out: Endoscopy Department at [facility] - [address] [place] [id number] IMPRESSION: - Diverticulosis in the sigmoid colon [...] AM EDT Narrative 04/03/2024 11:20 AM EDT [facility] Diagnostic Imaging Department [address] [place] [address] [id number] Patient: JOSUÉ GRIMES /Age/Sex: 1960 - 63 - F Unit#: [id number] Location/Status: SPDIMAM/REG CLI Mnemonic/Ordering Site: [facility] Ordering Physician: MARCIA JACKMAN MD Kimmy Screening Digital - 04/03/24 - 1111 Report Status:Signed HISTORY: The patient is a 63-year-old female presenting for routine screening mammography. The patient underwent right breast biopsy in 2013, pathology benign. FINDINGS: Full-field digital mammography of the breasts bilaterally consisting of tomosynthesis in MLO and CC projection is performed in the [employer] 2000-D unit. Computer aided detection utilizing the iCAD system was utilized. The breasts are again seen to be composed of a combination of fatty and fibroglandular elements (scattered areas of fibroglandular density, category B density as calculated with [employer] Volpara software), without significant change as compared [...] Benign Finding PQRI CPT II 3342F Code 36968, 02040 PQRI 225 CPT II 7025F Dictating Physician: YUNG AVENDANO MD Electronically Signed by: YUNG AVENDANO MD Dic Date/Time: 04/03/24 1115 Sign date/Time: 04/03/24 1120 Procedure Note Yung Avendano MD - 04/21/2024 [facility] Diagnostic Imaging Department [address] [place] [id number] Patient: DWIGHTJOSUÉ./Age/Sex: 1960 - 63 - F Unit#: [id number] Location/Status: [facility] CLI Mnemonic/Ordering Site: [facility] Ordering Physician: MARCIA JACKMAN MD Kimmy Screening Digital - 04/03/24 - 1111 Report Status:Signed HISTORY: The patient is a 63-year-old female presenting for routinescreening mammography. The patient underwent right breast biopsy in 2013,pathology benign. FINDINGS: Full-field digital mammography of the breasts bilaterallyconsisting of tomosynthesis in MLO and CC projection is performed in the [employer] 2000-D unit. Computer aided detection utilizing the iCAD system wasutilized. The breasts are again seen to be composed of a combination of fatty and fibroglandular elements (scattered areas of fibroglandular density,category B density as calculated with [employer] Volpara software), without significantchange as compared to [...] Benign Finding PQRI CPT II 3342F Code 38966, 80042 PQRI 225 CPT II 7025F Dictating Physician: YUNG AVENDANO MD Electronically Signed by: YUNG AVENDANO MD Dic Date/Time: 04/03/24 1115 Sign date/Time: 04/03/24 1120 Marcia Jackman MD IMG BI PROCEDURES Final Re sult from Last 3 Months or Most Recently Relevant to Health Maintenance Insurance [place] Care Teams Liquid Sugar Melter Relationship Specialty Start Date End Date Marcia Jackman MD [address] [place] [address] PCP - General Internal Medicine 07/31/24
[2025-05-28 18:36] LABS: Iron 63 mcg/dL (30-160); Percent Iron Saturation 22 % (15-50); Total Iron Binding Capacity 282 mcg/dL (228-428); Unsaturated Iron Binding 219 ug/dL
[2025-05-28 18:57] LABS: Ferritin 122 ng/mL (10-250)
== END 2025-05-28 10:40 | disposition home or self-care (01) ==
LOC: HO.HKASLDS 10:39
PROVIDERS: PCP Internal Medicine; Visit Provider Internal Medicine
DX: E87.6 Hypokalemia (principal); D50.9 Iron deficiency anemia, unspecified
CPT/HCPCS: 36415; 82728; 83540; 84132